=== PATIENT | female | born 1975 | race African-American/Black ===

== ENCOUNTER 2016-06-17 17:13 | Observation (INO) | payer OTHER ==
[~2016-06-17] VITALS: Ht 162.6 cm; Wt 95.0 kg
[~2016-06-17 17:13] MED LIST: ATEN1TAB73 PO; CLIN200T PO; HYDR-2768 PO; HYZA50TA2 PO; IBUP800T23 PO; LISI-591 PO; NAPR-729 PO; TRAM50 PO
[2016-06-17 17:15] VITALS: BP 170/94; PULSE 82; RESP 20; TEMP 98.1; O2SAT 96
[2016-06-17] MEDS ORDERED: SODIUM CHLORIDE 0.9% FLUSH 5 ML FLUSH IVF PRN ×2 (19:00→21:15)
--- NOTE | 2016-06-17 19:05 | PD ---
HPI Chief Complaint: Chest Pain Time Seen by Provider: 19:05 Travel History International Travel<30 days: No Contact w/Intl Traveler<30days: No Traveled to known affect area: No History of Present Illness HPI 40-year-old female with a history of hypertension and CHF presents to the emergency department for evaluation of left anterior chest pain radiating to her left arm for one month and cough with sore throat for one week. Patient states that she has a constant left anterior chest pain that radiates to her left arm has been going on for about 4 weeks. States that she was seen at [facility] for these complaints 3 weeks ago and admitted to the hospital for 3 days. States that the pain is persisted. The patient also complains of itchy throat and dry nonproductive cough for the past week, states that over the past 2 days she has lost her voice. She denies any fever, chills , nausea, vomiting, shortness of breath, swelling of the extremities, abdominal pain, lightheadedness, dizziness. Patient states that she is in between cardiologists and PCPs right now due to change of insurance. Last cardiac catheterization in October 2015, no stenting. Reports that she has a history of congestive heart failure secondary to uncontrolled hypertension and leaky heart valve. No other complaints. PFSH Past Medical History Anxiety: Yes Cardiovascular Problems: Yes (CHF) Diminished Hearing: No Hypertension: Yes ?: Not (status post hysterectomy) Past Surgical History Cholecystectomy: Yes Hysterectomy: Yes Social History Alcohol Use: No Tobacco Use: Yes (1/2 PK PER DAY) Substance Use: No Allergies-Medications (Allergen,Severity, Reaction): Coded Allergies: Naprosyn (Verified Allergy, Severe, Hives, 06/17/16) Reported Meds & Prescriptions Reported Meds & Active Scripts Active Ultram (Tramadol HCl) 50 Mg Tab 1-2 Tab PO QIDPRN FOR PAIN Clinoril (Sulindac) 200 Mg Tab 200 Mg PO BID Reported Naprosyn (Naproxen) 375 Mg Tab 375 Mg PO DIRECTED Hctz (Hydrochlorothiazide) 25 Mg Tab 12.5 Mg PO DAILY Tenormin (Atenolol) 25 Mg Tab 50 Mg PO DAILY Zestril (Lisinopril) 20 Mg Tab 20 Mg PO DAILY Review of Systems Except as stated in HPI: all other systems reviewed are Neg Physical Exam Narrative GENERAL: Well-nourished and well-developed pleasant female patient in no acute distress who is nontoxic appearing. SKIN: Warm and dry. HEAD: Normocephalic and atraumatic. EYES: No injection, drainage, or hyphema noted. PERRLA. EOMI. ENT: No nasal drainage noted. Oropharynx is clear. NECK: Supple and the trachea is midline. CARDIOVASCULAR: Regular rate and rhythm. RESPIRATORY: Breath sounds are equal bilaterally with no accessory muscle use, wheezing, rhonchi, or crackles. GASTROINTESTINAL: Abdomen is soft, non-tender, and nondistended. MUSCULOSKELETAL: No obvious deformities, swelling, cyanosis, or ecchymosis is present throughout the upper and lower extremities. Patient has full range of motion without any signs of neurovascular compromise. NEUROLOGICAL: Awake, alert, and oriented. Normal speech and gait. Cranial nerves are grossly intact. Data Data Last Documented VS Vital Signs Date Time Temp Pulse Resp B/P Pulse Ox O2 Delivery O2 Flow Rate FiO2 06/17/16 17:15 98.1 82 20 170/94 96 Room Air Orders Electrocardiogram (06/17/16 18:40) Complete Blood Count With Diff (06/17/16 19:00) Comprehensive Metabolic Panel (06/17/16:00) B-Type Natriuretic Peptide (06/17/16:00) Act Partial Throm Time (Ptt) (06/17/16:00) Prothrombin Time / Inr (Pt) (06/17/16 19:00) Ckmb (Isoenzyme) Profile (06/17/16:00) Troponin I (06/17/16:00) Influenzae A/B Antigen (06/17/16:00) Iv Access Insert/Monitor (06/17/16 19:00) Chest, Single Ap (06/17/16:00) Sodium Chloride 0.9% Flush (Ns Flush) (06/17/16 19:00) CKMB (06/17/16:00) CKMB% (06/17/16 19:00) Labs Laboratory Tests Test 06/17/16 19:00 White Blood Count 7.5 TH/MM3 Red Blood Count 4.90 MIL/MM3 Hemoglobin 12.8 GM/DL Hematocrit 37.7 % Mean Corpuscular Volume 77.0 FL Mean Corpuscular Hemoglobin 26.2 PG Mean Corpuscular Hemoglobin 34.0 % Concent Red Cell Distribution Width 15.5 % Platelet Count 310 TH/MM3 Mean Platelet Volume 8.0 FL Neutrophils (%) (Auto) 45.7 % Lymphocytes (%) (Auto) 45.6 % Monocytes (%) (Auto) 6.4 % Eosinophils (%) (Auto) 1.7 % Basophils (%) (Auto) 0.6 % Neutrophils # (Auto) 3.4 TH/MM3 Lymphocytes # (Auto) 3.4 TH/MM3 Monocytes # (Auto) 0.5 TH/MM3 Eosinophils # (Auto) 0.1 TH/MM3 Basophils # (Auto) 0.0 TH/MM3 CBC Comment DIFF FINAL Differential Comment Prothrombin Time 10.1 SEC Prothromb Time International 0.9 RATIO Ratio Activated Partial 28.2 SEC Thromboplast Time Sodium Level 141 MEQ/L Potassium Level 3.8 MEQ/L Chloride Level 105 MEQ/L Carbon Dioxide Level 29.0 MEQ/L Anion Gap 7 MEQ/L Blood Urea Nitrogen 10 MG/DL Creatinine 0.83 MG/DL Estimat Glomerular Filtration 92 ML/MIN Rate Random Glucose 108 MG/DL Calcium Level 8.7 MG/DL Total Bilirubin 0.2 MG/DL Aspartate Amino Transf 15 U/L (AST/SGOT) Alanine Aminotransferase 17 U/L (ALT/SGPT) Alkaline Phosphatase 114 U/L Total Creatine Kinase 147 U/L Creatine Kinase MB LESS THAN 0.5 NG/ML Troponin I LESS THAN 0.02 NG/ML B-Type Natriuretic Peptide 11 PG/ML Total Protein 7.6 GM/DL Albumin 3.7 GM/DL MDM Medical Decision Making Medical Screen Exam Complete: Yes Emergency Medical Condition: Yes Differential Diagnosis Acute bronchitis versus viral illness versus CHF exacerbation versus unlikely ACS Narrative Course 40-year-old female presents to the emergency department for evaluation of left anterior chest pain radiating to the left arm and cough with sore throat. Patient is afebrile, vital signs are stable. Physical examination is essentially unremarkable. Labs have been drawn and sent. Chest x-ray is negative for any acute abnormalities. EKG shows sinus rhythm with no acute ST elevations or depressions. CBC is unremarkable. CMP is unremarkable. Troponin is less than 0.02. BNP is within normal limits. Influenza swab is negative. Discussed all results with the patient. Patient is reporting cardiac catheterization in October 2015 however I am unable to obtain those records at this time. She is offered admission to chest pain center and would like to stay as she is truly concerned about this chest pain. I think this is reasonable. She'll stay in [facility]. I discussed the case with my attending physician Dr. Sher who is aware of the patients history, physical examination findings, and treatment plan. Diagnosis Primary Impression: Chest pain Qualified Code: R07.9 - Chest pain, unspecified type Admitting Information Admitting Physician Requests: Cele Rodriguez Jun 17, 2016 19:05
[2016-06-17 19:48] LABS: AUTOMATED NEUTROPHIL # 3.4 TH/MM3 (1.8-7.7); BASOPHIL % 0.6 % (0.0-2.0); EOSINOPHIL # 0.1 TH/MM3 (0-0.4); EOSINOPHIL % 1.7 % (0.0-4.0); HEMATOCRIT 37.7 % (35.0-46.0); HEMO FLAGS DIFF FINAL; LYMPH % 45.6 % (9.0-44.0); LYMPHOCYTE # 3.4 TH/MM3 (1.0-4.8); MEAN CORPUSCULAR HEMOGLOBIN 26.2 PG (27.0-34.0); MONO % 6.4 % (0.0-8.0); NEUT % 45.7 % (16.0-70.0); PLATELET COUNT 310 TH/MM3 (150-450); RED CELL DISTRIBUTION WIDTH 15.5 % (11.6-17.2); WHITE BLOOD COUNT 7.5 TH/MM3 (4.0-11.0)
[2016-06-17 19:57] LABS: APTT (PATIENT) 28.2 SEC (24.3-30.1); INTERNATIONAL NORMALIZED RATIO 0.9 RATIO; PROTHROMBIN TIME - PATIENT 10.1 SEC (9.8-11.6)
[2016-06-17 20:00] LABS: ANION GAP 7 MEQ/L (5-15); AST (GOT) 15 U/L (15-37); BLOOD UREA NITROGEN 10 MG/DL (7-18); CHLORIDE 105 MEQ/L (98-107); GLOMERULAR FILTRATION RATE 92 ML/MIN (>89); POTASSIUM 3.8 MEQ/L (3.5-5.1); SODIUM (NA) 141 MEQ/L (136-145)
[2016-06-17 20:05] LABS: ALKALINE PHOSPHATASE 114 U/L (45-117); ALT (GPT) 17 U/L (10-53); CREATINE KINASE 147 U/L (26-192); TOTAL BILIRUBIN ADULT 0.2 MG/DL (0.2-1.0)
[2016-06-17 20:17] LABS: CKMB LESS THAN 0.5 NG/ML (0.5-3.6)
--- NOTE | 2016-06-17 20:26 | RADRPT ---
EXAM DATE/TIME: 06/17/2016 19:16 [facility] COMPARISON: No previous studies available for comparison. INDICATIONS : Cough. MEDICAL HISTORY : Congestive heart failure. SURGICAL HISTORY : None. ENCOUNTER: Initial ACUITY: 4 - 6 days PAIN SCORE: 0/10 LOCATION: Bilateral chest FINDINGS: A single view of the chest demonstrates the lungs to be symmetrically aerated without evidence of mas s, infiltrate or effusion. The cardiomediastinal contours are unremarkable. Osseous structures are intact. CONCLUSION: No acute disease. Martin Bolivar MD on June 17, 2016 at 20:24 Board Certified Radiologist. This report was verified electronically.
[2016-06-17] MEDS ORDERED: ACETAMINOPHEN 500 MG CPLT PO PRN (21:15)
[2016-06-17 21:58] VITALS: BP 164/89; PULSE 78; RESP 18; O2SAT 100
[2016-06-17] MEDS ORDERED: TRAM50TA PO (22:05)
[2016-06-17] MEDS ORDERED: LISI-515 PO (22:05)
[2016-06-17] MEDS ORDERED: HYDR12.56 PO (22:05)
[2016-06-17 23:00] VITALS: O2SAT 98
[2016-06-17 23:02] LABS: CREATINE KINASE 139 U/L (26-192)
[2016-06-18 00:33] VITALS: BP 166/80
[2016-06-18 01:02] VITALS: BP 169/76; PULSE 70; RESP 16; O2SAT 98
[2016-06-18 02:14] LABS: CREATINE KINASE 117 U/L (26-192)
[2016-06-18 02:26] LABS: CKMB LESS THAN 0.5 NG/ML (0.5-3.6)
[2016-06-18 08:57] VITALS: O2SAT 97
[2016-06-18] MEDS ORDERED: SODIUM CHLORIDE 0.9% FLUSH 5 ML FLUSH IVF SCH (09:00)
--- NOTE | 2016-06-18 09:10 | HHI.DCPOC ---
Discharge Care Plan Diagnosis: (1) Atypical chest pain (2) Viral syndrome Goals to Promote Your Health * To prevent worsening of your condition and complications * To maintain your health at the optimal level Directions to Meet Your Goals Take your medications as prescribed Follow your dietary instruction Follow activity as directed Keep your appointments as scheduled Take your immunizations and boosters as scheduled If your symptoms worsen call your PCP, if no PCP go to Urgent Care Center or Emergency Room Smoking is Dangerous to Your Health. Avoid second hand smoke Call the 24-hour hour crisis hotline for domestic abuse at Leann Gregory Jun 18, 2016 09:10
[2016-06-18] MEDS ORDERED: HYDROCHLOROTHIAZIDE 12.5 MG CAP PO SCH (09:15)
[2016-06-18] MEDS ORDERED: LISINOPRIL 20 MG TAB PO SCH (09:15)
--- NOTE | 2016-06-18 10:34 | MH ---
cc: ANN GOODWIN MD DATE OF ADMISSION: 06/17/2016 DATE OF : 1975 CHIEF COMPLAINT Chest pain. HISTORY OF PRESENT ILLNESS This is a 40-year-old patient with known hypertension and congestive heart failure who presents to the emergency room with left anterior chest discomfort that radiated to her shoulder into her arm. The patient states she has had this discomfort for many months, although this past month has been worse. She is also complaining of a sore throat x1 week. The chest discomfort is described as an intermittent sharp pain with pressure and achiness that radiates to her left shoulder and arm. It had been constant for approximately 7-8 months. In fact she has had this chest pain in the past and was seen and evaluated in [facility] and had a cardiac catheterization with Dr. Gleason. She was told at this catheterization she had no disease, had a leaky valve and there was no intervention such as angioplasty or stent. She also went back to [facility] three weeks ago and was treated for the same symptoms as far as her chest discomfort. They monitored her and no stress test was completed at that time per her report. The chest pain is constant. No associated symptoms. No known precipitating factors or relieving factors. In regards to her sore throat this has lasted for approximately one week. 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 PAST MEDICAL HISTORY 1. Hypertension. 2. Congestive heart failure. 3. Anxiety. PAST SURGICAL HISTORY 1. Hysterectomy. 2. Cholecystectomy. FAMILY HISTORY Mother had stents placed in her early 40s. 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 She is a lifelong nonsmoker. Denies any alcohol or illegal drug use. No known diabetes or hyperlipidemia. Reports hypertension that was uncontrolled and led to congestive heart failure. PAST CARDIAC TESTING She was following with Dr. Zepeda. Last stress test was in 2011. He has followed her for a "leaky valve" and has been told that as she ages she may need to have that repaired or replace. She had a cardiac catheterization in October 2015 with no intervention and was told she had no disease other than a leaky valve. This was completed at [facility] under Dr. Gleason. She has not followed with a tube bending machine operator since that time due to insurance changes, although now she has new insurance and is awaiting an appointment to be placed with her new tube bending machine operator as well as a primary care provider. She also has an orthopedic physician appointment scheduled for next week regarding her left shoulder and left arm discomfort. ALLERGIES NAPROXEN CAUSED HIVES. MEDICATIONS Current medication list includes: 1. Lisinopril 20 mg daily. 2. Tramadol 50 mg q.6h. p.r.n. 3. Hydrochlorothiazide 12.5 mg daily. 4. She also is on another blood pressure medicine but she is unsure of the name and/or dose of this medication. States compliance with all medications. REVIEW OF SYSTEMS GENERAL: No fatigue, fevers, chills, change in appetite or weakness. HEENT: No headache or visual changes. No dysphagia. No congestion or drainage. Reports a sore throat for the past week. CARDIOVASCULAR: As stated above. No palpitations, intermittent leg pain or dizziness. RESPIRATORY: No shortness of breath. Reports intermittent cough that is occasionally dry, other times productive, over the past week. There has been no wheeze. No known asthma. GASTROINTESTINAL: No bowel changes, diarrhea, nausea or vomiting. Reports a good appetite and able to drink plenty of fluids. GENITOURINARY: No dysuria. MUSCULOSKELETAL: No lower leg edema or pain. No change in range of motion. Reports discomfort in the left shoulder and left arm for many months. In fact she has an appointment with an orthopedic physician next week regarding this discomfort. Has had rotator cuff problems in the past. She believes she has had a spur to that area. NEUROLOGIC: No changes with balance, motor or sensory deficits, loss of consciousness. PSYCHIATRIC: No anxiety or depression. DERMATOLOGIC: No concerning lesions. PHYSICAL EXAMINATION VITAL SIGNS: Temperature 98.1, pulse 82, respiratory 16, blood pressure 169/76. 99% on room air. Blood pressure on admission was 170/94. GENERAL: An alert, well-nourished, well-developed in no acute distress, obese, pleasant -Surinamese female. HEAD: Normocephalic, atraumatic. EYES: Sclera are clear and conjunctiva is without injection. ENT: Mucous membranes are pink and moist. NECK: Supple. Trachea is midline. CARDIOVASCULAR: Regular rate and rhythm with a grade 2/6 systolic murmur with no rub or gallop. No JVD. S1, S2. No S3. No S4. PULMONARY: Clear lungs throughout bilaterally with no crackles, wheeze or rhonchi. Non-labored symmetrical chest rise. ABDOMEN: Soft, obese, nontender, nondistended. Positive bowel tones. EXTREMITIES: Pulses +2 x4. No dependent edema. MUSCULOSKELETAL: Normal tone x4. No obvious deformities. She is slightly tender in the left anterior chest wall and shoulder. NEUROLOGIC: Cranial nerves II through XII grossly intact. Motor strength 5/5. Gait is within normal limits. PSYCHIATRIC: She is alert and oriented x3, has a pleasant affect, appropriate mood, insight and judgment. SKIN: Normal turgor, normal texture. Warm and dry. No rashes or lesions. LABORATORY CBC: MCV 77, MCH 26.6, otherwise unremarkable. Chemistry: Random glucose 108, otherwise unremarkable. Three sets of cardiac enzymes are negative. Coagulation is unremarkable. IMAGING Chest x-ray read by radiologist has a conclusion of no acute disease. EKG Three EKGs show normal sinus rhythm with a normal axis and no ST or T segment changes. ASSESSMENT AND PLAN 1. Chest pain: The patient has been admitted to the chest pain center, was ruled out with three sets of EKGs and cardiac enzymes and monitored overnight. She has been seen and evaluated by Dr. Ann Goodwin. The patient's chest pain is very atypical in nature and in hindsight of her having a normal cardiac catheterization in October 2015, no further cardiac testing will be warranted especially since her chest discomfort radiates to her left shoulder and left arm has been constant for many months. She does have an appointment scheduled with her orthopedic surgeon and next week and she will follow up with him accordingly. She has been highly encouraged to keep her appointment with her new tube bending machine operator in regards to her congestive heart failure, hypertension, and to monitor her leaky valve. 2. Hypertension: Two of her three hypertension medications have been reordered as she is unsure of the third medication. I encouraged her to keep a blood pressure log and take it with her to her primary care appointment. No changes to medications at this time. 3. Musculoskeletal: Encouraged the patient to keep appointment with the orthopedic physician, use warm heat to the area as needed for pain and Motrin with food as needed as well and/or Aleve. She is scheduled to work in a few days and feels that she will be able to return to work at that time. 4. Viral syndrome: Encouraged her to rest and to perform symptom management and to get plenty of fluids. Also, she has been instructed that if she does not feel better within a week that she should follow up with her primary care provider. She is agreeable to this plan of care and stable upon discharge. Dictated by: TIMOTHY Marte Ann Goodwin M.D. BAB/TG /9:33 AM /10:33 AM
--- NOTE | 2016-06-18 16:55 | EKG ---
Date Performed: 06/17/2016 Time Performed: 22:26:08 PTAGE: 40 years EKG: Sinus rhythm NORMAL ECG Since PREVIOUS TRACING , no significant change noted PREVIOUS TRACIN06/17/2016 18.40 DOCTOR: Zulma Yan Interpretating Date/Time 06/18/2016 16:54:55
--- NOTE | 2016-06-18 16:55 | EKG ---
Date Performed: 06/18/2016 Time Performed: 01:04:17 PTAGE: 40 years EKG: Sinus rhythm NORMAL ECG Since PREVIOUS TRACING , no significant change noted PREVIOUS TRACIN06/17/2016 22.26 DOCTOR: Zulma Yan Interpretating Date/Time 06/18/2016 16:54:18
--- NOTE | 2016-06-18 17:07 | EKG ---
Date Performed: 06/17/2016 Time Performed: 18:40:47 PTAGE: 40 years EKG: Sinus rhythm NORMAL ECG NO PREVIOUS TRACING DOCTOR: Mauricio Martni Interpretating Date/Time 06/18/2016 17:02:39
[2016-06-19] MEDS ORDERED: FURO20TA PO (09:54)
[2016-06-19] MEDS ORDERED: NIFE30TA61 PO (09:54)
[2016-06-19] MEDS ORDERED: METO50TA PO (09:54)
[2016-06-19] MEDS ORDERED: CYCL1TAB29 PO (09:54)
[2016-06-19] MEDS ORDERED: MAGICADU2 SWISH-SWAL (09:54)
[2016-06-19] MEDS ORDERED: SIMV20TA PO (09:54)
[2016-06-19] MEDS ORDERED: ASPI1TAB69 PO (09:54)
[2016-06-19] MEDS ORDERED: ALBUAER3 INH (10:56)
[2016-06-26] MEDS ORDERED: ERGO1CAP10 PO (10:37)
[2016-08-14] MEDS ORDERED: IBUP800T23 PO (09:48)
[2016-08-14] MEDS ORDERED: HYZA50TA2 PO (09:48)
[2016-08-14] MEDS ORDERED: BLOOD GLUCOSE M1 KIT (10:29)
[2016-08-14] MEDS ORDERED: BLOOD GLUCOSE T1 TES (10:29)
[2016-10-11] MEDS ORDERED: ERGO1CAP30 PO (12:57)
== END 2016-06-18 10:08 | disposition home or self-care (01) ==
LOC: NETRI 17:13 → NEDA 21:05 → NEPHCDU 06-18 00:37
PROVIDERS: ADMIT Internal Medicine Cardiovascular Disease; ATTEND Internal Medicine Cardiovascular Disease
DX: I11.0 Hypertensive heart disease with heart failure (principal); I50.9 Heart failure, unspecified; B34.9 Viral infection, unspecified; R07.89 Other chest pain; F41.9 Anxiety disorder, unspecified; Z72.0 Tobacco use
CPT/HCPCS: 71010; 80053; 82550; 82552; 83880; 84484; 85025; 85610; 85730; 87804; 93005; 99285; G0378

== ENCOUNTER → 2016-06-25 | Outpatient (CLI) | payer OTHER ==
[~2016-06-25] MED LIST changes: +ALBUAER3 INH; +ASPI1TAB69 PO; -ATEN1TAB73 PO; +BLOOD GLUCOSE M1 KIT; +BLOOD GLUCOSE T1 TES; -CLIN200T PO; +CYCL1TAB29 PO; +ERGO1CAP10 PO; +ERGO1CAP30 PO; +FURO20TA PO; -HYDR-2768 PO; +HYDR12.56 PO; +LISI-515 PO; -LISI-591 PO; +MAGICADU2 SWISH-SWAL; +METO50TA PO; -NAPR-729 PO; +NIFE30TA61 PO; +SIMV20TA PO; -TRAM50 PO; +TRAM50TA PO
[2016-06-25 09:22] LABS: AUTOMATED NEUTROPHIL # 2.3 TH/MM3 (1.8-7.7); BASOPHIL % 0.7 % (0.0-2.0); EOSINOPHIL # 0.2 TH/MM3 (0-0.4); EOSINOPHIL % 3.7 % (0.0-4.0); HEMATOCRIT 37.2 % (35.0-46.0); LYMPH % 41.4 % (9.0-44.0); LYMPHOCYTE # 1.9 TH/MM3 (1.0-4.8); MEAN CELL VOLUME 78.2 FL (80.0-100.0); MEAN CORPUSCULAR HEMOGLOBIN 24.8 PG (27.0-34.0); MEAN CORPUSCULAR HGB CONC 31.7 % (32.0-36.0); MONO % 7.4 % (0.0-8.0); NEUT % 46.8 % (16.0-70.0); PLATELET COUNT 282 TH/MM3 (150-450); RED BLOOD COUNT 4.76 MIL/MM3 (4.00-5.30); RED CELL DISTRIBUTION WIDTH 14.4 % (11.6-17.2); WHITE BLOOD COUNT 4.7 TH/MM3 (4.0-11.0)
[2016-06-25 09:23] LABS: HEMO FLAGS AUTO DIFF
[2016-06-25 09:43] LABS: OVALOCYTES 1+ (NORMAL)
[2016-06-25 09:44] LABS: SCAN/DIFF AUTO DIFF CONFIRMED
[2016-06-25 12:28] LABS: BLOOD, URINE NEG (NEG); COMMENT (UR) CULT NOT INDICATED; CULTURE IF INDICATED CULT NOT INDICATED; GLUCOSE,URINE NEG (NEG); KETONE, URINE NEG (NEG); MUCUS URINE FEW /lpf (OCC); NITRITE,URINE NEG (NEG); PH, URINE 6.5 (5.0-8.5); SQUAMOUS EPITHELIAL CELL URINE 1 /hpf (0-5); URINE COLOR LIGHT-YELLOW (YELLW/STRAW)
[2016-06-25 12:59] LABS: ALKALINE PHOSPHATASE 108 U/L (45-117); ALT (GPT) 19 U/L (10-53); ANION GAP 7 MEQ/L (5-15); AST (GOT) 13 U/L (15-37); BICARBONATE 27.5 MEQ/L (21.0-32.0); BLOOD UREA NITROGEN 10 MG/DL (7-18); CHLORIDE 106 MEQ/L (98-107); FREE T4 0.92 NG/DL (0.76-1.46); GLOMERULAR FILTRATION RATE 100 ML/MIN (>89); GLUCOSE,FASTING 84 MG/DL (74-99); HDL CHOLESTEROL 88.2 MG/DL (40.0-60.0); LDL CHOLESTEROL 109 MG/DL (0-99); POTASSIUM 3.5 MEQ/L (3.5-5.1); SODIUM (NA) 140 MEQ/L (136-145); TOTAL BILIRUBIN ADULT 0.4 MG/DL (0.2-1.0); TRANSFERRIN IRON PROFILE 218 MG/DL (200-360)
[2016-06-25 16:15] LABS: HEMOGLOBIN A1a 0.9 %; HEMOGLOBIN A1b 0.7 %; HEMOGLOBIN F 0.9 %; HEMOGLOBIN LA1C 1.3 %; HEMOGLOBIN P3 2.4 %
== END ==
LOC: OLAB 08:33
PROVIDERS: ATTEND Nurse Practitioner Family
DX: J40 Bronchitis, not specified as acute or chronic (principal); R73.01 Impaired fasting glucose; R53.83 Other fatigue; I10 Essential (primary) hypertension
CPT/HCPCS: 80053; 80061; 81001; 82306; 83036; 83540; 83550; 84439; 84443; 84480; 85025; 86703